=== PATIENT | female | born 1980 | race Caucasian/White ===

== ENCOUNTER → 2017-05-22 | Outpatient (REF) ==
[2015-08-17 20:00] VITALS: BP 113/79
[~2017-05-22] MED LIST: DILANTIN PO; DILANTIN100 MG PO; FOLIC ACID0.4 MG PO; LEVSIN/SL0.125 MG SL; NAPROXEN500 MG PO; ZOFRAN ODT8 MG PO; ZOFRAN4 M1 PO
== END ==
LOC: LAB 14:26
DX: G40.909 Epilepsy, unspecified, not intractable, without status epilepticus (principal)

== ENCOUNTER 2017-07-30 20:00 | Emergency (ER) | payer SELFPAY ==
[2017-07-30 21:57] VITALS: BP 116/71
== END 2017-07-30 21:57 | disposition home or self-care (01) ==
LOC: ED 20:00
DX: M94.0 Chondrocostal junction syndrome [Tietze] (principal); G40.909 Epilepsy, unspecified, not intractable, without status epilepticus; F17.210 Nicotine dependence, cigarettes, uncomplicated
CPT/HCPCS: J1885

== ENCOUNTER 2019-03-02 15:17 | Emergency (ER) | payer SELFPAY ==
[2019-03-02] MEDS ORDERED: VIBRAMYCIN HYC100 MG PO (16:12)
[2019-03-02 16:32] VITALS: BP 118/73
== END 2019-03-02 16:31 | disposition home or self-care (01) ==
LOC: ED 15:17
DX: S50.861A Insect bite (nonvenomous) of right forearm, initial encounter (principal); G40.909 Epilepsy, unspecified, not intractable, without status epilepticus; K58.9 Irritable bowel syndrome, unspecified; F17.210 Nicotine dependence, cigarettes, uncomplicated; Z90.49 Acquired absence of other specified parts of digestive tract; Z88.5 Allergy status to narcotic agent; Z91.040 Latex allergy status; W57.XXXA Bitten or stung by nonvenomous insect and other nonvenomous arthropods, initial encounter
CPT/HCPCS: J1885

== ENCOUNTER 2022-08-07 15:49 | Emergency (ER) | payer MEDICAID ==
[~2022-08-07] VITALS: Ht 162.6 cm; Wt 77.3 kg
[~2022-08-07 15:49] MED LIST changes: +NORCO 325 MG-51 TA1 PO; +ONDANSETRON ODT8 MG PO; +VIBRAMYCIN HYC100 MG PO
[2022-08-07] MEDS ORDERED: NORCO 325 MG-7.1 TA1 PO (16:34)
[2022-08-07] MEDS ORDERED: ZOFRAN ODT4 MG PO (16:34)
[2022-08-07 17:21] VITALS: BP 105/59
== END 2022-08-07 16:55 | disposition home or self-care (01) ==
LOC: ED 15:49
DX: B02.9 Zoster without complications (principal); F17.210 Nicotine dependence, cigarettes, uncomplicated; Z91.040 Latex allergy status; Z88.5 Allergy status to narcotic agent; Z28.311 Partially vaccinated for COVID-19

== ENCOUNTER → 2022-08-23 | Outpatient (CLI) | payer MEDICAID ==
[~2022-08-23] MED LIST changes: +NORCO 325 MG-7.1 TA1 PO; +ZOFRAN ODT4 MG PO
== END ==
LOC: RAD 10:03
DX: M77.8 Other enthesopathies, not elsewhere classified (principal); M79.671 Pain in right foot